=== PATIENT | male | born 1955 | race Caucasian/White ===

== ENCOUNTER 2022-01-12 07:00 | Day surgery (SDC) | payer MEDICARE, BC ==
--- NOTE | 2022-01-10 07:54 | HP ---
DATE OF SURGERY: 01/12/2022 HISTORY OF PRESENT ILLNESS: The patient is a 66-year-old male who presents with positive Cologuard. The patient has not had a colonoscopy to date. The patient denies GI symptoms at this time. The patient denies family history of colon cancer. PAST MEDICAL HISTORY: Hyperlipidemia. PAST SURGICAL HISTORY: None. ALLERGIES: NKDA. MEDICATIONS: Atorvastatin, Fenofibrate. FAMILY HISTORY: Diabetes, heart disease. SOCIAL HISTORY: None. REVIEW OF SYSTEMS: CONSTITUTIONAL: Denies fever or chills. CHEST: Denies shortness of breath. CVS: Denies chest pain. ABDOMEN: Denies abdominal pain, nausea, vomiting, diarrhea, constipation or rectal bleeding. PHYSICAL EXAMINATION: GENERAL: No acute distress. CHEST: Nonlabored. No shortness of breath. CVS: Regular rate and rhythm. ABDOMEN: Soft. IMPRESSION: Positive Cologuard. PLAN: Colonoscopy with Dr. Colten Donald. As dictated by Misti Wyatt NP.
[~2022-01-12 07:00] MED LIST: Lactated Ringers 1,000 ML IV ONE
[2022-01-12] MEDS ORDERED: Lactated Ringers 1,000 ML IV SCH (07:30)
[2022-01-12] MEDS ORDERED: DIPRIVAN 200 MG/20 ML IV ONE ×2 (11:14→11:23)
[2022-01-12] MEDS ORDERED: Xylocaine-Mpf 2% 5 Ml Vial ONE (11:14)
[2022-01-12] MEDS ORDERED: Ephedrine Sulfate 50 MG/ML ONE (11:37)
--- NOTE | 2022-01-12 11:53 | OP ---
SURGERY DATE/TIME: 01/12/2022 1115 PREOPERATIVE DIAGNOSIS: Positive Cologuard. POSTOPERATIVE DIAGNOSIS: Two small 4 mm polyps of the mid sigmoid. PROCEDURES: 1) Colonoscopy complete to cecum. 2) Cold polypectomy x2 one jar mid sigmoid. SURGEON: Colten Donald M.D. ANESTHESIA: MAC. COMPLICATIONS: None. CONDITION: Stable. FOLLOW UP: Three years. INDICATION: The patient had positive Cologuard. DESCRIPTION OF PROCEDURE: Taken to endoscopy. Anal digital examination satisfactory. Scope introduced. The scope advanced to the cecum. Base of the cecum, ileocecal valve was satisfactory. Ascending, hepatic, transverse, splenic, descending, sigmoid, mid sigmoid two small 4 mm polyps one jar. Distal sigmoid, rectum, anus moderate internal hemorrhoids. The patient tolerated the procedure satisfactory. Follow up in three years.
[2022-01-12 12:27] VITALS: BP 138/78; PULSE 57; O2SAT 96
== END 2022-01-12 12:31 | disposition home or self-care (01) ==
LOC: SDC 07:00
PROVIDERS: ATTEND Surgery
DX: K64.8 Other hemorrhoids (principal); R19.5 Other fecal abnormalities; K63.5 Polyp of colon
CPT/HCPCS: J2704